=== PATIENT | male | born 1985 | race Caucasian/White ===

== ENCOUNTER 2024-12-27 20:43 | Emergency (ER) | payer SELFPAY ==
[~2024-12-27] VITALS: Ht 165.1 cm; Wt 65.0 kg
[2024-12-27 20:55] VITALS: O2SAT 98
[2024-12-27] MEDS ORDERED: CLONIDINE 0.2MG TABLET PO ONE (22:00)
[2024-12-27 23:10] LABS: BASOPHILS % 0.4 % (0.0-2.0); EOSINOPHILS % 2.8 % (0.0-5.0); HEMATOCRIT. 45.6 % (42.0-52.0); HEMOGLOBIN. 15.5 g/dL (14.0-18.0); LYMPHOCYTES % 31.8 % (20.0-50.0); MEAN CORPUSCULAR HEMOGLOBIN 32.7 pg (28.0-32.0); MEAN CORPUSCULAR VOLUME 96.1 fL (80.0-94.0); MEAN PLATELET VOLUME 7.7 fl (7.4-10.4); MONOCYTES % 6.4 % (2.0-8.0); NEUTROPHILS % 58.6 % (40.0-76.0); PLATELET 230 x1000/uL (130-400); RED BLOOD CELL COUNT 4.74 mill/uL (4.7-6.1); RED CELL DISTRIBUTION WIDTH 11.8 % (11.6-14.6)
[2024-12-27 23:25] LABS: ETHANOL BLOOD 56 mg/dL (<10)
[2024-12-27 23:29] LABS: TROPONIN I HIGH SENSITIVITY < 4 ng/L (3.0-53)
[2024-12-28] MEDS: CLONIDINE 0.1MG TABLET PO NR (00:01)
[2024-12-28 02:34] LABS: CHLORIDE 104 mEq/L (98-107); POTASSIUM 3.9 mEq/L (3.5-5.1); SODIUM 139 mEq/L (136-145)
[2024-12-28 02:35] LABS: CALCIUM 9.3 mg/dL (8.7-10.4); CARBON DIOXIDE 24 mEq/L (21-32)
[2024-12-28 02:40] LABS: CREATININE 0.8 mg/dL (0.6-1.3); GLUCOSE 189 mg/dL (70-105); UREA NITROGEN BLOOD 13 mg/dL (9-23)
[2024-12-28 02:42] LABS: ALANINE AMINOTRANSFERASE 103 IU/L (10-49); ALBUMIN 4.7 g/dL (3.2-4.8); ASPARTATE AMINOTRANSFERASE 42 IU/L (<34); BILIRUBIN TOTAL 0.4 mg/dL (0.1-1.0); PROTEIN TOTAL 7.9 g/dL (6.0-8.3)
[2024-12-28 03:22] VITALS: BP 129/75; PULSE 82; RESP 17; TEMP 36.9; O2SAT 98
[2024-12-28 03:57] LABS: TROPONIN I HIGH SENSITIVITY < 4 ng/L (3.0-53)
== END 2024-12-28 03:23 | disposition home or self-care (01) ==
LOC: ER 20:43
DX: R07.89 Other chest pain (principal); Z79.899 Other long term (current) drug therapy
CPT/HCPCS: 36415; 71045; 80053; 80320; 83880; 84484; 85025; 93005; 99285; G0480